=== PATIENT | female | born 1955 | race Caucasian/White ===

== ENCOUNTER → 2016-11-17 | Outpatient (CLI) | payer OTHER | LOC: US 13:00 | DX: R10.2 Pelvic and perineal pain (principal) | CPT/HCPCS: 76856 ==

== ENCOUNTER → 2016-11-18 | Outpatient (CLI) | payer OTHER | LOC: US 09:00 | DX: R10.0 Acute abdomen (principal); K80.20 Calculus of gallbladder without cholecystitis without obstruction; K82.8 Other specified diseases of gallbladder | CPT/HCPCS: 76700 ==

== ENCOUNTER → 2016-12-01 | Outpatient (CLI) | payer OTHER | LOC: MAMO 15:00 | DX: Z12.31 Encounter for screening mammogram for malignant neoplasm of breast (principal); Z78.0 Asymptomatic menopausal state | CPT/HCPCS: G0202 ==

== ENCOUNTER → 2021-05-11 | Outpatient (CLI) | payer OTHER ==
[~2021-05-11] MED LIST: FLOMAX0.4 MG PO; NORCO 5-325 TA1 EACH PO; TORADOL 10 MG T10 MG PO; ZOFRAN ODT 4 MG4 MG PO
[2021-05-11 14:42] LABS: BUN/CREATININE RATIO 17 (0-10)
[2021-05-12 12:14] LABS: IMMUNOGLOBULIN A, QN, SERUM 123 mg/dL (87-352)
[2021-05-12 16:14] LABS: T-TRANSGLUTAMINASE (TTG) IGA <2 U/mL (0-3)
== END ==
LOC: LAB 13:21
DX: R10.9 Unspecified abdominal pain (principal); R13.10 Dysphagia, unspecified; R11.0 Nausea; R63.4 Abnormal weight loss
CPT/HCPCS: 36415; 80053; 82150; 82784; 83516; 83690; 86140

== ENCOUNTER → 2021-05-12 | Outpatient (CLI) | payer OTHER | LOC: LBRF 14:29 | DX: R10.9 Unspecified abdominal pain (principal); R11.0 Nausea; R63.4 Abnormal weight loss | CPT/HCPCS: 82656; 83993 ==

== ENCOUNTER → 2021-10-21 | Outpatient (CLI) | payer OTHER ==
[2021-10-21 13:45] LABS: HEMOGLOBIN 13.6 gm/dl (12.3-15.3); RED BLOOD COUNT 4.49 M/UL (4.00-5.10)
== END ==
LOC: LAB 12:53
PROVIDERS: Nurse Practitioner Family
DX: R17 Unspecified jaundice (principal); R79.82 Elevated C-reactive protein (CRP); R13.10 Dysphagia, unspecified
CPT/HCPCS: 36415; 82247; 82248; 85025; 86140

== ENCOUNTER → 2022-02-11 | Outpatient (CLI) | payer OTHER | LOC: MAMO 08:30 | DX: Z12.31 Encounter for screening mammogram for malignant neoplasm of breast (principal) | CPT/HCPCS: 77063; 77067 ==

== ENCOUNTER → 2022-03-18 | Outpatient (CLI) | payer OTHER | LOC: MAMO 03-17 11:00 → US 03-17 14:00 → MAMO 13:00 | DX: R92.8 Other abnormal and inconclusive findings on diagnostic imaging of breast (principal); N60.01 Solitary cyst of right breast | CPT/HCPCS: 76641; 77066; G0279 ==

== ENCOUNTER → 2022-05-31 | Outpatient (CLI) | payer OTHER | LOC: KOH-I 13:44 | DX: M79.672 Pain in left foot (principal); M19.072 Primary osteoarthritis, left ankle and foot | CPT/HCPCS: 73630 ==

== ENCOUNTER → 2022-06-08 | Outpatient (CLI) | payer OTHER | LOC: KOH-I 13:30 | DX: I73.9 Peripheral vascular disease, unspecified (principal); M79.662 Pain in left lower leg | CPT/HCPCS: 93926 ==